=== PATIENT | male | born 1990 | race Caucasian/White ===

== ENCOUNTER 2019-04-02 08:51 | Emergency (ER) | payer OTHER ==
[~2019-04-02] VITALS: Wt 78.0 kg
[2019-04-02] MEDS ORDERED: LEVETIRACETAM 1000 MG (PMX) 100 ML IVPB STA (09:25)
[2019-04-02] MEDS ORDERED: SOD CHLORIDE 0.9% 1,000 ML IV STA (09:25)
[2019-04-02] MEDS ORDERED: LORAZEPAM 2 MG INJ IV ONE (10:00)
[2019-04-02] MEDS ORDERED: LACO200T2 PO (10:31)
[2019-04-02] MEDS ORDERED: PHEN64.8 PO (10:33)
[2019-04-02] MEDS ORDERED: OXCA300T41 PO ×2 (10:34)
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
[2019-04-02 14:50] VITALS: BP 110/64; PULSE 72; RESP 18
== END 2019-04-02 14:52 | disposition home or self-care (01) ==
LOC: E/R 08:51
DX: G40.909 Epilepsy, unspecified, not intractable, without status epilepticus (principal); R40.2142 Coma scale, eyes open, spontaneous, at arrival to emergency department; R40.2362 Coma scale, best motor response, obeys commands, at arrival to emergency department; R40.2252 Coma scale, best verbal response, oriented, at arrival to emergency department
CPT/HCPCS: 36415; 70450; 80053; 80156; 80184; 82962; 85025; 85610; 85730; 96374; 96375; J1953; J2060; J7030; Z7502